=== PATIENT | female | born 1985 | race African-American/Black ===

== ENCOUNTER 2017-01-11 19:54 | Emergency (ER) | payer MEDICAID, OTHER ==
[~2017-01-11] VITALS: Ht 165.1 cm; Wt 57.0 kg
[~2017-01-11 19:54] MED LIST: ACET-3161; IBUP-2029 PO; METR-112; NORCO; SUMA100T PO
[2017-01-11 20:23] VITALS: BP 103/74
== END 2017-01-12 01:50 | disposition left against medical advice (07) ==
LOC: ER 19:54
DX: H92.02 Otalgia, left ear (principal); M25.561 Pain in right knee; F17.200 Nicotine dependence, unspecified, uncomplicated; Z53.21 Procedure and treatment not carried out due to patient leaving prior to being seen by health care provider

== ENCOUNTER 2017-01-12 04:00 | Emergency (ER) | payer MEDICAID ==
[~2017-01-12] VITALS: Ht 162.6 cm; Wt 57.0 kg
[2017-01-12 04:29] VITALS: BP 112/61
== END 2017-01-12 06:00 | disposition left against medical advice (07) ==
LOC: ER 04:00
DX: H92.20 Otorrhagia, unspecified ear (principal); Z53.21 Procedure and treatment not carried out due to patient leaving prior to being seen by health care provider

== ENCOUNTER 2017-02-07 17:57 | Emergency (ER) | payer MEDICAID ==
[~2017-02-07] VITALS: Ht 157.5 cm; Wt 57.0 kg
[2017-02-07] MEDS ORDERED: KETOROLAC 30MG/ML VIAL IM ONE (22:15)
[2017-02-07] MEDS ORDERED: METOCLOPRAMIDE HCL 10MG TABLET PO ONE (22:15)
[2017-02-07 22:39] VITALS: BP 118/79
== END 2017-02-08 00:38 | disposition home or self-care (01) ==
LOC: ER 20:23
DX: G43.909 Migraine, unspecified, not intractable, without status migrainosus (principal); H72.92 Unspecified perforation of tympanic membrane, left ear; F17.210 Nicotine dependence, cigarettes, uncomplicated; F12.10 Cannabis abuse, uncomplicated; Z98.890 Other specified postprocedural states
CPT/HCPCS: 81025; 96372; 99283; J1885; J8597